=== PATIENT | female | born 1960 | race Caucasian/White ===

== ENCOUNTER 2021-09-30 12:32 | Emergency (ER) | payer MEDICARE ==
[~2021-09-30] VITALS: Ht 152.4 cm; Wt 40.8 kg
[2021-09-30] MEDS: IV NORMAL SALINE 1000 ML BAG IV ONE (12:41)
[2021-09-30 12:52] LABS: HEMATOCRIT 37.4 % (31.2-41.9); MEAN CORPUSCULAR HEMOGLOBIN 29.2 uug (24.7-32.8); PLATELET COUNT (AUTO) 210 K/uL (179-408)
--- NOTE | 2021-09-30 12:55 | NUR ---
MD at bedside, medical screening exam in progress.
[2021-09-30 12:59] LABS: CARBON DIOXIDE 29 mmol/L (21-32); CHLORIDE 104 mmol/L (98-107); CREATININE 0.7 mg/dL (0.6-1.3); GLUCOSE 114 mg/dL (74-106); POTASSIUM 4.4 mmol/L (3.5-5.1); UREA NITROGEN, BLOOD 19 mg/dL (7-18)
[2021-09-30 13:07] LABS: ALANINE AMINOTRANSFERASE 17 U/L (14-59); ALKALINE PHOSPHATASE 64 U/L (50-136); ASPARTATE AMINOTRANSFERASE 9 U/L (15-37); BILIRUBIN,DIRECT 0.1 mg/dL (0.0-0.2); BILIRUBIN,TOTAL 0.5 mg/dL (0.2-1.0)
--- NOTE | 2021-09-30 14:28 | NUR ---
UA sent to lab.
[2021-09-30 14:31] LABS: *BILIRUBIN,URIN NEGATIVE (NEGATIVE); *BLOOD, URINE NEGATIVE (NEGATIVE); *CLARITY,URINE SLIGHTLY CLOUDY (CLEAR); *COLOR,URINE YELLOW (YELLOW); *KETONES,URINE 1+ (NEGATIVE); *UROBILINOGEN,URINE 0.2 E.U./dl (NORMAL); LEUKOCYTE ESTERASE ,URINE NEGATIVE (NEGATIVE); NITRITE, URINE NEGATIVE (NEGATIVE); UGLUCOSE NEGATIVE (NEGATIVE)
[2021-09-30 15:37] VITALS: BP 110/80
--- NOTE | 2021-09-30 15:37 | NUR ---
Patient discharged to home in stable condition. Written and verbal after care instructions given to pt and family. Patient verbalizes understanding of instructions. Stressed follow up or return to ER for worsening s/s.
[2021-09-30 17:39] LABS: BACTERIA,URINE NONE SEEN /HPF (NONE SEEN); RBC,URINE 0-3 /HPF (0-3); SQUAMOUS EPITHELIAL CELL,UR FEW /HPF (NONE SEEN); URINE AMORPHOUS PHOSPHATES MA /HPF; WBC,URINE 0-3 /HPF (0-3)
== END 2021-09-30 15:38 | disposition home or self-care (01) ==
LOC: ER 12:32
DX: R55 Syncope and collapse (principal)
CPT/HCPCS: 36415; 71045; 80048; 80076; 81001; 84443; 84484 ×2; 85025; 93005; 96360; 99285; J7040; A4663